=== PATIENT | female | born 1985 | race Asian ===

== ENCOUNTER 2022-05-16 13:40 | Emergency (ER) | payer OTHER ==
[~2022-05-16] VITALS: Ht 147.3 cm; Wt 38.6 kg
[2022-05-16 14:27] VITALS: BP 128/79
[2022-05-16] MEDS ORDERED: IBUP-1842 PO (16:22)
[2022-05-16] MEDS ORDERED: ACET-8386 PO (16:22)
--- NOTE | 2022-05-16 17:15 | NUR ---
37/F C/O LEFT KNEE PAIN S/P TRIP AND FALL TWO DAYS AGO, STATES "I THINK I BROKE MY KNEECAP." PT STATES FALLING DOWN DRIVEWAY; STATES LIMITED ROM WITH PAIN WITH AMBULATING. 9/10, THROBBING/SHARP/CONSTANT, NON-RADIATING PAIN; WORSENS WITH WEIGHT BEARING. DENIES LOC. DENIES TAKING PAIN MEDS, PATIENT AMBULATORY UPON ARRIVAL. PMH: PERIPHERAL NEUROPATHY, VALVE REPLACEMENT NKDA MEDS: ASA
[2022-05-16 17:16] VITALS: BP 125/89
--- NOTE | 2022-05-16 17:16 | NUR ---
Patient discharged with v/s stable. Written and verbal after care instructions given and explained for Patella Fracture, Adult. Patient alert, oriented and verbalized understanding of instructions. Ambulatory with steady gait by crutches. All questions addressed prior to discharge. ID band removed. Patient advised to follow up with PMD. Rx of Cypress 5-325, Ibuprofen given. Patient educated on indication of medication including possible reaction and side effects. Opportunity to ask questions provided and answered. Copy of RAD imaging results, copy of XRAY given to patient.
== END 2022-05-16 17:16 | disposition home or self-care (01) ==
LOC: MED 13:40
DX: S82.092A Other fracture of left patella, initial encounter for closed fracture (principal); Z79.899 Other long term (current) drug therapy; W18.09XA Striking against other object with subsequent fall, initial encounter; Y93.89 Activity, other specified; Y92.89 Other specified places as the place of occurrence of the external cause; Y99.8 Other external cause status
CPT/HCPCS: 29505; 73562; 99283